=== PATIENT | female | born 1990 | race Hispanic/Latino ===

== ENCOUNTER → 2024-01-09 | Outpatient (REF) | payer OTHER ==
[2024-01-09 18:27] LABS: FREE T4 1.18 NG/DL (0.89-1.76)
[2024-01-09 18:28] LABS: FOLLICLE STIMULATING HORMONE 3.1 mIU/ML; LUTEINIZING HORMONE 1.7 mIU/ML; THYROID STIMULATING HORMONE 0.966 uIU/ML (0.55-4.78)
== END ==
LOC: M LAB REF 16:35
PROVIDERS: ATTEND Obstetrics & Gynecology
DX: N92.1 Excessive and frequent menstruation with irregular cycle (principal)

== ENCOUNTER → 2024-01-22 | Outpatient (CLI) | payer OTHER | LOC: M RAD 11:14 → EDUNIT# 11:30 | PROVIDERS: ATTEND Obstetrics & Gynecology | DX: N92.1 Excessive and frequent menstruation with irregular cycle (principal); N83.201 Unspecified ovarian cyst, right side ==